=== PATIENT | male | born 1980 | race Caucasian/White ===

== ENCOUNTER 2025-05-18 14:49 | Emergency (ER) | payer OTHER ==
[2025-05-18 15:11] VITALS: RESP 18
--- NOTE | 2025-05-18 16:49 | US ---
EXAMINATION TYPE: US venous doppler duplex UE LT DATE OF EXAM: 05/18/2025 COMPARISON: NONE CLINICAL INDICATION: Male, 44 years old with history of Arm pain; plasma donation 10 days ago, bruise and pain x 1 week TECHNIQUE: Grayscale, color Doppler and spectral Doppler imaging of the upper extremity. SIDE PERFORMED: left VESSELS IMAGED: IJV Subclavian Vein Axilla Vein Brachial Vein(s) Radial Paired Veins Ulnar Paired Veins Cephalic Vein* Basilic Vein* (*superficial vessels) FINDINGS: Left Arm: Negative for DVT Grayscale, color doppler, spectral doppler imaging performed of the deep veins of the upper extremiti es. IMPRESSION: 1. Left upper extremity ultrasound negative for deep venous thrombosis [facility], , 05/18/2025 4:47 PM
--- NOTE | 2025-05-18 17:29 | ED ---
Skin/Abscess/FB HPI - General Chief complaint: Skin/Abscess/Foreign Body Stated complaint: Blood draw complication Time Seen by Provider: 05/18/25 16:52 Source: patient, RN notes reviewed Mode of arrival: ambulatory Limitations: no limitations - History of Present Illness Initial comments: This is a 44-year-old male who presents to the emergency department for left arm bruising. States that he donated plasma 10 days ago and has had bruising to his arm since. He is concerned about some sort of internal damage to his arm. States that it is making it difficult for him to work. Describes it as just an ongoing soreness. - Related Data Home Medications Medication Instructions Recorded Confirmed Hydrocodone/Acetaminophen [Perry 1 - 2 tab PO DAILY PRN 10/02/15 10/05/15 7.5-325] Previous Rx's Medication Instructions Recorded Ketorolac [Toradol] 10 mg PO Q6HR PRN #15 tab 05/18/25 Allergies Allergy/AdvReac Type Severity Reaction Status Date / Time No Known Allergies Allergy Verified 05/18/25 15:11 Review of Systems ROS Statement: Those systems with pertinent positive or pertinent negative responses have been documented in the HPI. ROS Other: All systems not noted in ROS Statement are negative. Past Medical History Past Medical History: No Reported History, Musculoskeletal Disorder, Skin Disorder Additional Past Medical History / Comment(s): LOW BACK PAIN & JANICE. 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 -USES OTC RX History of Any Multi-Drug Resistant Organisms: None Reported Past Surgical History: Tonsillectomy Additional Past Surgical History / Comment(s): RT TESTICLE REMOVED Past Anesthesia/Blood Transfusion Reactions: No Reported Reaction Past Psychological History: No Psychological Hx Reported Smoking Status: Current every day smoker Past Alcohol Use History: Occasional Past Drug Use History: Marijuana - Past Family History Father Family Medical History: Cancer Additional Family Medical History / Comment(s): LUNG Mother Family Medical History: Cancer Additional Family Medical History / Comment(s): LUNG CA General Exam Limitations: no limitations General appearance: alert, in no apparent distress Head exam: Present: atraumatic, normocephalic, normal inspection Respiratory exam: Present: normal lung sounds bilaterally. Absent: respiratory distress, wheezes, rales, rhonchi, stridor Cardiovascular Exam: Present: regular rate, normal rhythm Extremities exam: Present: other (Mild ecchymosis to the medial aspect of the left forearm and biceps. No gross tenderness. Full range of motion. 2+ radial pulses) Neurological exam: Present: alert, oriented X3, CN II-XII intact Psychiatric exam: Present: normal affect, normal mood Course Vital Signs 05/18/25 05/18/25 15:08 17:51 Temperature 98.1 F 98 F Pulse Rate 93 90 Respiratory 18 18 Rate Blood Pressure 156/99 145/89 O2 Sat by Pulse 98 98 Oximetry Medical Decision Making - Medical Decision Making This is a 44 year old male who presents to the emergency department for left arm pain and bruising. Was pt. sent in by a medical professional or institution? @ -No Did you speak to anyone other than the patient for history? @ -No Did you review nursing and triage notes? @ -Yes, and I agree, it is accurate with regards to the patient's symptoms. Were old charts reviewed? @ -No Differential Diagnosis? @ -Differential Musculoskeletal Muscular strain, contusion, ligament sprain, fracture, arthritis, septic arthritis, bursitis, cellulitis, muscle spasm, nerve compression, DVT, arterial occlusion, herpes zoster, electrolyte abnormality, tumor.... This is not meant to be in all inclusive list EKG interpreted by me (3pts min.)? @ -Not obtained X-rays interpreted by me (1pt min.)? @ -Not obtained CT interpreted by me (1pt min.)? @ -Not obtained U/S interpreted by me (1pt. min.)? @ -Duplex ultrasound of the left upper extremity obtained. My interpretation identifies no evidence of a DVT. What testing was considered but not performed? (CT, X-rays, U/S, labs)? Why? @ -None What meds were considered but not given? Why? @ -None Did you discuss the management of the patient with other professionals? @ -No Did you reconcile home meds? @ -No Was smoking cessation discussed for >3mins.? @ -No Was critical care preformed (if so, how long)? @ -No Were there social determinants of health that impacted care today? How? (Homelessness, low income, unemployed, alcoholism, drug addiction, transportation, low edu. Level, literacy, decrease access to med. care, shelter, rehab)? @ -No Was there de-escalation of care discussed even if they declined? (Discuss DNR or withdrawal of care, Hospice)? @ -No What co-morbidities impacted this encounter? (DM, HTN, Smoking, COPD, CAD, Cancer, CVA, Hep., AIDS, mental health diagnosis, sleep apnea, morbid obesity)? @ -None Was patient admitted / discharged? @ -Discharged. Duplex ultrasound of the left upper extremity obtained re vealing no acute process. Advised that the ecchymosis following the plasma donation is to be expected. We discussed elevation and warm compresses. Toradol prescribed for pain control. Patient discharged home in stable condition. Case discussed with ED attending Dr. Biswas. Return precautions reviewed in depth, the patient is instructed to return to the emergency department with any new, worsening, or concerning symptoms. Patient verbalized understanding. Undiagnosed new problem with uncertain prognosis? @ -None Drug Therapy requiring intensive monitoring for toxicity (Heparin, Nitro, Insulin, Cardizem)? @ -None Were any procedures done? @ -None Diagnosis/symptom? @ -Left arm ecchymosis Acute, or Chronic, or Acute on Chronic? @ -Acute Uncomplicated (without systemic symptoms) or Complicated (systemic symptoms)? @ -Uncomplicated Side effects of treatment? @ -None Exacerbation, Progression, or Severe Exacerbation] @ -Not applicable Poses a threat to life or bodily function? @ -No - Radiology Data Radiology results: report reviewed, image reviewed Disposition Clinical Impression: Ecchymosis of forearm, Superficial bruising of arm Disposition: HOME SELF-CARE Instructions (If sedation given, give patient instructions): Ecchymosis (ED) Additional Instructions: Return to the emergency department with any new, worsening, or concerning symptoms. Take the Toradol with Tylenol as needed for pain relief. If you choose to take the Toradol, do not take any other anti-inflammatories such as ibuprofen, take one or the other. You can also elevate the arm and apply warm compresses. Follow up with your primary care provider in 1-2 days. Prescriptions: Ketorolac [Toradol] 10 mg PO Q6HR PRN #15 tab PRN Reason: Pain Is patient prescribed a controlled substance at d/c from ED?: No Referrals: Israel Parker MD [Primary Care Provider] - 1-2 days Time of Disposition: 17:29
[2025-05-18] MEDS: KETOROLAC 15 MG/ML 1 ML VIAL IM STA (17:38)
[2025-05-18] MEDS: ACET/COD 300 MG/30 MG STARTER PACK 6 TAB BTL PO STA (17:44)
[2025-05-18 17:53] VITALS: BP 145/89; PULSE 90; TEMP 98
== END 2025-05-18 17:54 | disposition home or self-care (01) ==
LOC: EC 14:49
DX: S50.12XA Contusion of left forearm, initial encounter (principal); F17.200 Nicotine dependence, unspecified, uncomplicated; X58.XXXA Exposure to other specified factors, initial encounter
CPT/HCPCS: 96372; 99283